=== PATIENT | male | born 1975 | race Caucasian/White ===

== ENCOUNTER 2016-11-14 21:57 | Emergency (ER) | payer MEDICAID ==
[~2016-11-14] VITALS: Ht 182.9 cm; Wt 113.4 kg
[~2016-11-14 21:57] MED LIST: HYDROCODONE-APA1 TA1 PO
[2016-11-15 00:09] VITALS: BP 141/83
[2016-11-15] MEDS ORDERED: OXYCODONE HCL 55 MG PO (00:22)
[2016-11-15] MEDS ORDERED: PREDNISONE 20 M20 MG PO (00:22)
[2016-11-15] MEDS ORDERED: NORFLEX100 MG PO (00:22)
== END 2016-11-15 00:38 | disposition home or self-care (01) ==
LOC: ER 21:57
DX: S16.1XXA Strain of muscle, fascia and tendon at neck level, initial encounter (principal); M25.512 Pain in left shoulder; Z88.5 Allergy status to narcotic agent; Z88.0 Allergy status to penicillin; X58.XXXA Exposure to other specified factors, initial encounter; Y93.89 Activity, other specified; Y92.89 Other specified places as the place of occurrence of the external cause; Y99.8 Other external cause status

== ENCOUNTER 2017-01-07 18:28 | Emergency (ER) | payer MEDICAID ==
[~2017-01-07] VITALS: Ht 182.9 cm; Wt 117.9 kg
[~2017-01-07 18:28] MED LIST changes: +NORFLEX100 MG PO; +OXYCODONE HCL 55 MG PO; +PREDNISONE 20 M20 MG PO
[2017-01-07] MEDS ORDERED: FLEXERIL PO (18:33)
[2017-01-07] MEDS ORDERED: HYDROCODONE-APA1 TA1 PO (18:33)
[2017-01-07] MEDS ORDERED: PREDNISONE 10 M10 MG PO (18:57)
[2017-01-07] MEDS ORDERED: NORFLEX100 MG PO (18:57)
[2017-01-07] MEDS ORDERED: HYDROCODONE-AP1 EAC6 PO (18:57)
== END 2017-01-07 20:00 | disposition home or self-care (01) ==
LOC: ER 18:28
DX: M43.6 Torticollis (principal); Z88.0 Allergy status to penicillin; Z88.5 Allergy status to narcotic agent